=== PATIENT | female | born 1940 | race Caucasian/White ===

== ENCOUNTER 2016-05-14 02:02 | Inpatient (IN) | payer MEDICARE, BC, OTHER ==
--- NOTE | ~2016-05-14 | CN ---
Consultation Report [facility] [address] [place]. [address] NAME: SCOTT BARCLAY : 39 STATUS : ADM Stefanie PAT#: [id number] AGE: 75 ADM/REG DATE : 05/14/16 MR#: [id number] REPORT SERV DATE: 05/14/16 DICTATED BY: BAKARI WELCH JR. DATE: 05/14/16 REPORT STATUS : Draft TRANSCRIBED BY: MODL DATE: 05/14/16 OPHTHALMOLOGY CONSULTATION DATE OF CONSULTATION: 05/14/2016 HISTORY OF PRESENT ILLNESS: The patient is a 75-year-old white female with sudden onset of decreased vision left eye. The patient reports last night at 11:30 p.m., patient suddenly went out "in the left eye." Only a small area of peripheral central vision present. Right eye is normal. No trauma. No headache. No redness. No pain. PAST MEDICAL HISTORY: Positive for COPD, atrial fibrillation, history of lung cancer. PAST EYE HISTORY: Cataract surgery, both eyes, 10 years ago. FAMILY MEDICAL HISTORY: Negative. FAMILY OCULAR HISTORY: Negative. MEDICATIONS: See med sheet. ALLERGIES: PENICILLIN, SULFA, QUININE. SOCIAL HISTORY: Negative. REVIEW OF SYSTEMS: Negative. PHYSICAL EXAMINATION: GENERAL: Well-developed, well-nourished white female, in no acute distress. Alert, oriented x3. HEENT: Vision near with correction 20/50 in the right eye, 20/100 in the left eye. External examination is normal in both eyes. Motility is esotropic and full in both eyes. Pupils 4 mm to 3 mm, constricting bilaterally. Possible afferent pupillary defect, left eye. Confrontation visual camacho full to finger count on the right, constricted concentrically on the left. Anterior segment examination reveals lids and lashes to be clear in both eyes, conjunctivae and sclerae to be clear in both eyes, cornea to be clear in both eyes, anterior chamber to be deep in both eyes, iris flat in both eyes, lens posterior chamber intraocular lens in both eyes. Retina dilated with Mydriacyl 1% reveals this to be sharp in both eyes. Cup-to-disc 0.2 in both eyes. Vessels on the right are normal. Left, there appears to be a central retinal artery occlusion with a plaque lodged in the central retinal artery. Macula sanchez red spot on the left. Macula on the right is normal. Peripheral retinal exam normal in both eyes. ASSESSMENT AND PLAN: Central retinal artery occlusion, left eye. Recommend admit. Will Consultation Report [facility] [id number] [place]. [address] NAME: SCOTT BARCLAY : 39 STATUS : ADM Stefanie PAT#: [id number] AGE: 75 ADM/REG DATE : 05/14/16 MR#: [id number] REPORT SERV DATE: 05/14/16 DICTATED BY: BAKARI WELCH JR. DATE: 05/14/16 REPORT STATUS : Draft TRANSCRIBED BY: MODL DATE: 05/14/16 check sedimentation rate, C-reactive protein. Consult hospitalist. Recommend CBC with diff, carotid duplex, echocardiogram, PT/PTT. Will start timolol 0.5% one drop q.12 hours, left eye. Discussed low likelihood for visual recovery in the left eye and need for followup to evaluate for problems like neovascular glaucoma in the next 90 days. PB/MODL Bakari Welch M.D. / [id number] CC: Joce Waggoner Jr, MD Mario Mariani, M.D.
--- NOTE | ~2016-05-14 | DS ---
Discharge Summary [facility] [address] [place]. 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 SECONDARY DIAGNOSES: Left carotid stenosis, atrial fibrillation, history of pacemaker. HISTORY OF PRESENT ILLNESS: Please see Dr. Parra's dictation on 05/14/2016. HOSPITAL COURSE: Admitted with acute partial visual loss in the left eye. MRI was negative; however, a funduscopic exam did reveal consistent with a retinal artery occlusion, this was felt to be consistent with a retinal CVA. She did in fact have ipsilateral carotid stenosis 50% to 79% on MRA; however, CTA showed this only to be 50% and not in need of urgent carotid endarterectomy. She was being treated for atrial fibrillation with Xarelto, she was given aspirin. Other medicines were unchanged. She will follow up with Dr. Chun as an outpatient, Dr. Isaac Law in one to two weeks. She will get a followup appointment with Ophthalmology for glaucoma screening in their office. She will follow up with Dr. Bakari Savage of Ophthalmology following discharge. ALFIE/SANDRA Caro Sheikh M.D. / [id number] CC: Shay Bolanos M.D. Patrick Bowers, M.D. Sachin V Phade, M.D.
--- NOTE | ~2016-05-14 | HP ---
History And Physical [facility] [id number] [place]. [address] NAME: SCOTT BARCLAY : 39 STATUS : ADM Stefanie PAT#: [id number] AGE: 75 ADM/REG DATE : 05/14/16 MR#: [id number] REPORT SERV DATE: 05/14/16 DICTATED BY: GLO GAUTHIER DATE: 05/14/16 REPORT STATUS : Draft TRANSCRIBED BY: SANDRA DATE: 05/14/16 DATE OF ADMISSION: 05/14/2016 CHIEF COMPLAINT: This 75-year-old female, presenting with sudden left peripheral vision loss. HISTORY OF PRESENT ILLNESS: The patient's history was obtained through careful interview with the patient and daughter, coupled with review of [facility] medical records. The patient apparently was in usual state of health when at bedtime about 11 p.m. leading up to admission she had a "bam," left eye vision loss where she had just a "little spot" of retained vision in the middle of her visual camacho but total peripheral vision was completely lost and has still not been regained. Her right eye is unaffected. She stated that she felt slightly dizzy but no lightheadedness, no vertigo per. No confusion, no hemiparesis, no dysarthria no double vision. She denies any recent illness except for some slight nausea about two or three nights ago that then resolved within 24 hours. No fevers or chills. No shortness of breath. No headache. No back pain, no chest pain. No abdominal pain. No gait disturbance. REVIEW OF SYSTEMS: Otherwise, a 14-point review of systems was obtained and was negative. PAST MEDICAL HISTORY: 1. Atrial fibrillation, followed by Dr. Storey, on Xarelto. 2. AICD/pacer placement. 3. Hypertension. 4. Coronary artery disease, but no stent placement. 5. Lung cancer in 2011, status post radiation and "CyberKnife.". 6. Post-radiation pneumonitis with scar. 7. COPD. 8. Pneumonia. 9. Brain aneurysm in 1991 that "busted" right in the area she describes "between my eyes.". 10.Anemia. 11.Fibromyalgia. 12.Gastroesophageal reflux disorder. 13.Shingles with post-herpetic neuralgia. 14.Chronic pain management. 15.Depression. 16.Obstructive sleep apnea, on chronic BiPAP. 17.MRSA bacteremia. 18.Pseudomonas. History And Physical [address] [address] NAME: SCOTT BARCLAY : 39 STATUS : ADM Stefanie PAT#: [id number] AGE: 75 ADM/REG DATE : 05/14/16 MR#: [id number] REPORT SERV DATE: 05/14/16 DICTATED BY: GLO GAUTHIER DATE: 05/14/16 REPORT STATUS : Draft TRANSCRIBED BY: SANDRA DATE: 05/14/16 19.Pericardial effusion. 20.Irritable bowel syndrome seen by Dr. Chávez. 21.Pulmonary nodules. 22.C. difficile colitis January 2015. 23.Chronic pulmonary embolism seen by Dr. Selby. PAST SURGICAL HISTORY: 1. AICD/pacer placement. 2. Cholecystectomy. 3. Appendectomy. 4. Hysterectomy. 5. Skin cancer removal. 6. Right knee surgery. ALLERGIES: TO CEPHALOSPORINS, PENICILLIN, QUINOLONES, CODEINE, ERYTHROMYCIN, SULFA, QUININE, ALTACE, LYRICA, AND VERAPAMIL. SOCIAL HISTORY: Quit smoking more than 15 years ago. No alcohol abuse. She has been a for more than 25 years. Lives in [place], [place], alone, retired school resource officer. Supportive daughter at bedside. FAMILY HISTORY: Heart disease, stroke. Mother with pulmonary embolism. Aunt with lung cancer. Uncle with colon cancer. CURRENT MEDICATIONS: Include albuterol inhaler, Elavil 30 mg p.o. at bedtime, aspirin 81 mg p.o. daily, Lipitor 80 mg p.o. daily, nasal spray as needed, Bumex 2 mg in the morning, calcium with vitamin D, Coreg 3.125 mg p.o. b.i.d., digoxin 0.125 mg p.o. daily, Benadryl p.r.n., Nexium 40 mg p.o. b.i.d., iron supplement 3 times a day, Breo Ellipta inhaled every morning, Cozaar 25 mg p.o. daily, nitroglycerin, potassium 10 mEq p.o. t.i.d., Zantac 75 mg p.o. b.i.d., Xarelto 15 mg p.o. daily, Daliresp 500 mcg p.o. daily, Spiriva inhaled daily, and allergy medication. PHYSICAL EXAMINATION: VITAL SIGNS: Temperature 98.4, pulse 79, blood pressure 144/64, respiratory rate 20, O2 saturation 97% on room air. GENERAL: A pleasant, cooperative female, no evidence of acute distress. Vision check shows a left central vision of 20/200. Right central vision 20/40. NEUROLOGICAL: The patient has complete loss of peripheral vision in her left eye but central vision is intact. Otherwise, cranial nerves 2 through 12 are intact and symmetrical other than this one finding. The patient has 5/5 strength in upper and lower extremities that is symmetrical. HEENT: Pupils are equal, round, and reactive to light. No conjunctival pallor. No scleral icterus. Nares are patent. Oropharynx is clear of obstruction. Moist mucous membranes. NECK: Trachea midline, no thyromegaly. LYMPH: No cervical lymphadenopathy. No supraclavicular lymphadenopathy. RESPIRATORY: Clear to auscultation at bases. No wheezes, rales, or rhonchi. Normal respiratory effort. History And Physical [address] [address] NAME: SCOTT BARCLAY : 39 STATUS : ADM Stefanie PAT#: [id number] AGE: 75 ADM/REG DATE : 05/14/16 MR#: [id number] REPORT SERV DATE: 05/14/16 DICTATED BY: GLO GAUTHIER DATE: 05/14/16 REPORT STATUS : Draft TRANSCRIBED BY: SANDRA DATE: 05/14/16 CARDIOVASCULAR: Regular rate and rhythm, paced on the monitor. No murmurs, rubs, or gallops. No extremity edema is appreciated. ABDOMEN: Soft, nontender, nondistended. Normal bowel sounds auscultated throughout. No organomegaly. DERMATOLOGICAL: Warm and dry extremities. No pallor, no cyanosis. PSYCHIATRIC: Normal affect. Good mood. Alert and oriented x3. LABORATORY DATA: White blood count 6.8, hemoglobin 13, hematocrit 38, platelets 159. Sodium 141, potassium 4.1, chloride 101, bicarb 35, BUN 18, creatinine 0.93, glucose 99, and INR 2.0. STUDIES: 1. Chest x-ray by my own evaluation shows chronic right peripheral disease, stable compared to old x-ray. Stable cardiomegaly as well. 2. EKG shows ventricular pacing. 3. CT scan of the brain without contrast shows no acute intracranial process. ASSESSMENT AND PLAN: 1. Peripheral vision loss of the left eye. Negative CT scan of the brain. Unable to do MRI secondary to pacer/AICD. Continue aspirin, continue Xarelto. Obtain Neurology consult. Obtain an Ophthalmology consult with Dr. Savage. Check carotid ultrasound. Check echocardiogram. Check telemetry. Check fasting lipid panel. Consider a CT angiogram of the brain because of history of aneurysm back in 1991 ?.. 2. Atrial fibrillation, on Xarelto. 3. Pacemaker/AICD. 4. Obstructive sleep apnea, on nightly BiPAP. KPL/MODL Glo Gauthier M.D. / [id number] CC: Shay Pedersen M.D.
--- NOTE | ~2016-05-14 | CN ---
Consultation Report [facility] [address] [place]. [address] NAME: SCOTT BARCLAY : 39 STATUS : DIS IN PAT#: [id number] AGE: 75 ADM/REG DATE : 05/14/16 MR#: [id number] REPORT SERV DATE: 05/16/16 DICTATED BY: OLEG CHUN DATE: 05/15/16 REPORT STATUS : Draft TRANSCRIBED BY: SANDRA DATE: 05/15/16 DATE OF CONSULTATION: 05/15/2016 REASON FOR CONSULTATION: Evaluation for symptomatic carotid stenosis. BRIEF HISTORY: The patient is a 75-year-old female with a past medical history significant for atrial fibrillation, hypertension, coronary artery disease, lung cancer, pneumonia, intracranial aneurysm, fibromyalgia, anemia, chronic pain, and obstructive sleep apnea, who is on home oxygen as well as nightly BiPAP. She came in the hospital with sudden onset of left eye visual loss. She does not describe a lamp shade coming over her eye. Rather, she says that she lost her vision completely. She later said that she was able to retain a pinpoint spot in her central vision, which she could see. Occasionally, she feels like she can see everything normally if she looks through that one pinhole. She says that simply lasts for a second here or there and feels like she is pretty much lost her vision otherwise. She underwent an ophthalmology evaluation that suggested she has a central retinal occlusion. She ultimately underwent a carotid duplex that demonstrates elevated left internal carotid artery velocities. I was consulted for evaluation and treatment. The patient denies any other stroke-like symptoms. She has had no prodrome of symptoms. She denies any prior transient monocular blindness. PAST MEDICAL HISTORY: As above. PAST SURGICAL HISTORY: Includes AICD and pacemaker placement. She has had knee surgery, cholecystectomy, appendectomy, hysterectomy, and skin cancer removal. ALLERGIES: NUMEROUS AND THEY ARE DOCUMENTED ON THE CHART AND REVIEWED. MEDICATIONS: Documented on the chart and were reviewed. SOCIAL HISTORY: She quit smoking about 20 years ago. She denies any alcohol or drug use. She has been for a couple of decades. She lives alone in [place]. FAMILY HISTORY: Significant for heart disease and stroke. Cancers also run in her family. REVIEW OF SYSTEMS: A complete review of systems was performed and is negative with the exception of the aforementioned findings. PHYSICAL EXAMINATION: VITAL SIGNS: Documented on the chart and were reviewed. GENERAL: The patient is awake, alert, and oriented. No apparent distress. HEAD AND NECK: Benign without any carotid bruits. HEART: Regular rate and rhythm. LUNGS: Clear. ABDOMEN: Soft, nontender, nondistended with a nonaneurysmal aorta. Consultation Report [facility] [address] [place]. [address] NAME: SCOTT BARCLAY : 39 STATUS : DIS IN PAT#: [id number] AGE: 75 ADM/REG DATE : 05/14/16 MR#: [id number] REPORT SERV DATE: 05/16/16 DICTATED BY: OLEG CHUN DATE: 05/15/16 REPORT STATUS : Draft TRANSCRIBED BY: SANDRA DATE: 05/15/16 EXTREMITIES: She has a normal complement of upper extremity pulses without any significant edema or ischemic ulcerations. She has palpable femoral and popliteal pulses. I do not appreciate pedal pulses. She has no significant edema or ischemic ulcerations. NEUROLOGIC: Nonfocal, although she does have left eye visual loss. MUSCULOSKELETAL: Otherwise benign. LABORATORY DATA: Her investigations are fairly unremarkable. Her carotid duplex shows peak systolic velocities of just over 150 on the left side. They are normal on the right side. ASSESSMENT AND PLAN: It looks like this lady has had a central retinal artery occlusion on the left side. The etiology of this is unclear. The report of her carotid duplex suggests that she has a grade 2 disease. This may be overestimated. I would like to get a CT angiogram to better delineate her anatomy. We can decide what to do based on that. She is already on a statin. She is on anticoagulation for her atrial fibrillation. An echocardiogram was ordered, as it is very likely that she had a cardiac source of embolus or some intracranial issue. I doubt that she will need an intervention, but we can make this final decision when we have further objective data of what is going on with her carotid arteries. The patient expressed understanding of all this. PARTS PICKER/MODJennifer Oleg Chun M.D. / [id number] CC: Shay Bolanos M.D.
[2016-05-14 01:46] LABS: BASOPHILS 0.4 %; BASOPHILS ABSOLUTE 0.03 10/3/uL (0.0-0.16); EOSINOPHILS 2.5 %; EOSINOPHILS ABSOLUTE 0.17 10/3/uL (0.0-0.53); ER CBC TAT 0 Hrs 08 Mins; HEMATOCRIT 37.7 % (36.0-48.0); HEMOGLOBIN 12.9 g/dL (12.0-16.0); IMMATURE GRANULOCYTES 0.4 %; IMMATURE GRANULOCYTES ABSOLUTE 0.03 10/3/uL (0.0-0.11); LYMPHOCYTES ABSOLUTE 1.96 10/3/uL (0.67-4.30); MEAN CORPUS HGB CONC 34.2 g/dL (32.0-36.0); MEAN CORPUSCULAR HEMOGLOB 30.7 pg (26.0-34.0); MEAN CORPUSCULAR VOLUME 89.8 fL (80-100); MEAN PLATELET VOLUME 8.6 fL (9.2-13.0); MONOCYTES 8.6 %; MONOCYTES ABSOLUTE 0.58 10/3/uL (0.21-1.20); NEUTROPHILS 59.1 %; PLATELET COUNT 159 10/3/uL (150-400); RBC DISTRIBUTION WIDTH 13.6 % (12.0-16.0); WHITE BLOOD CELLS 6.8 10/3/uL (4.5-10.5)
[2016-05-14 01:47] LABS: MANUAL DIFF NO %
[2016-05-14 01:53] LABS: PARTIAL THROMBO TIME 41.4 SEC (22.5-37.2)
[2016-05-14 01:59] LABS: CALCIUM, SERUM 8.8 MG/DL (8.5-10.4); CHLORIDE, SERUM 101 MMOL/L (96-112); CO2 (CARBON DIOXIDE) 35 MMOL/L (24-34); CREATININE 0.93 MG/DL (0.55-1.02); GFR AFRICAN AMERICAN 69 ML/MIN (>=60); GFR NON AFRICAN AMERICAN 60 ML/MIN (>=60); GLUCOSE, SERUM 99 MG/DL (60-99); POTASSIUM, SERUM 4.1 MMOL/L (3.5-5.3); SODIUM, SERUM 141 MMOL/L (135-148)
[2016-05-14 02:00] LABS: BUN (BLOOD UREA NITROGEN) 18 MG/DL (6-23)
[~2016-05-14 02:02] MED LIST: ACCUNE1 INH; ACETSUP650 PR; ADVAIR INH; ADVAIR115P INH; ADVAIR250 INH; ALBUTEROL; ALLEGRA180 PO; AMB5 PO; AMIT10 PO; AMITRIPTYLINE; ANTI-FUNGAL2 % EX; ASAB PO; ATROVEN; ATV1 PO; BREO ELLIPTA INH; BROVANA15 MCG INH; BUM1 PO; BUM2 PO; C5 PO; CALCIUM; CALTRA600D PO; CALTRAT600 PO; CARD120 PO; CARDCD120 PO; CEFZIL500 MG PO; CO Q-10100 MG PO; COQ10100 MG OR; COREG3 PO; COUMADIN3 MG PO; COUMADIN4 MG PO; COZ25 PO; CYANO1000T PO; DALIRESP500 MCG; DALIRESP500 MCG PO; DELTADOSE; DIGITEK0.125 MG PO; DOLOPHINE10 MG PO; FERROUS SULF325 M1 PO; FERROUS SULFATE PO; GLUCAGON IM; HALF81 PO; IRON325 MG PO; JANTOVEN1 MG PO; JANTOVEN2.5 MG PO; JANTOVEN3 MG PO; JANTOVEN4 MG; JANTOVEN4 MG PO; JANTOVEN5 MG PO; K-TABS10 MEQ PO; KCL40UDL PO; KDUR20 PO; KLONOPIN WAF0.125 MG PO; KLOR-CON 1010 MEQ; KLOR-CON 1010 MEQ PO; KLOR-CON M1010 MEQ PO; L20 PO; L40; L40 PO; LAN125 PO; LAN25 PO; LIPITOR80 MG PO; LORTAB 5 PO; LYRICA50 PO; LYRICA75 PO; MAGOX4 PO; NATURA2 OPH; NEUR300 PO; NEXIUM40 PO; NITROSTAT0.4 MG SL; NORCO1 TA1 PO; NORV10 PO; NOVOLOG SC; NYS500UDL PO; OCEAN NAS; OS500 PO; OS500+D PO; P20 PO; P5 PO; PERCOCET1 TA4 PO; PRAVAC PO; PRILO PO; PRILOSEC OTC20 MG PO; PRILOSEC10 MG PO; PRILOSEC40 MG PO; PRIN2.5 PO; PROBIOTIC PO; PROTONIX PO; PROTONIX20 MG PO; PROVENTINH INH; PROVENTSOL INH; SPIRIVA INH; STERAPRED DS10 MG; SYMBICORT 160/41 INH INH; T PO; T3 PO; TEARS NATURA OPH; THERA M PLUS PO; ULTRAM50 PO; V80 PO; VALTREX5 PO; VANCOCIN HCL125 MG; VENTOLIN HFA INH; VIB100 PO; VITAMIN D1000 UNI1 PO; VITAMIN D31000 UNIT PO; XARELTO15 MG; XARELTO15 MG PO; ZANTAC 150 PO; ZITH250 PO; [UNRECOGNIZED DRUG - CODE] PO; [UNRECOGNIZED DRUG - OTHER]; [UNRECOGNIZED DRUG - OTHER] OR
[2016-05-14 02:04] LABS: PROTIME (NOT ORD) 22.3 SEC (12.0-14.5)
[2016-05-14] MEDS ORDERED: BREO ELLIPTA INH (02:48)
[2016-05-14] MEDS ORDERED: ZANTAC 75 PO (02:48)
[2016-05-14] MEDS ORDERED: SPIRIVA INH (02:48)
[2016-05-14] MEDS ORDERED: COZ25 PO (02:49)
[2016-05-14] MEDS ORDERED: DALIRESP500 MCG PO (02:49)
[2016-05-14] MEDS ORDERED: NITROSTAT0.4 MG SL (02:49)
[2016-05-14] MEDS ORDERED: COREG3 PO (02:49)
[2016-05-14] MEDS ORDERED: LAN125 PO (02:49)
[2016-05-14] MEDS ORDERED: AMIT10 PO (02:50)
[2016-05-14] MEDS ORDERED: LIPITOR80 MG PO (02:50)
[2016-05-14] MEDS ORDERED: KDUR10 PO (02:51)
[2016-05-14] MEDS ORDERED: XARELTO15 MG PO (02:51)
[2016-05-14] MEDS ORDERED: BUM2 PO (02:52)
[2016-05-14] MEDS ORDERED: VENTOLIN HFA INH (02:52)
[2016-05-14] MEDS ORDERED: DERMA-SMOOTH TOP (02:53)
[2016-05-14] MEDS ORDERED: ASTELIN NAS (02:53)
[2016-05-14] MEDS ORDERED: ULTRAM50 PO (02:54)
[2016-05-14] MEDS ORDERED: FERROUS SULF325 M1 PO (02:55)
[2016-05-14] MEDS ORDERED: CALTRA600D PO (02:55)
[2016-05-14] MEDS ORDERED: NEXIUM40 PO (02:55)
[2016-05-14] MEDS ORDERED: ASAB PO (02:56)
[2016-05-14] MEDS ORDERED: BEN25 PO (02:56)
[2016-05-14] MEDS ORDERED: AT25 PO (02:59)
[2016-05-14 09:03] LABS: C-REACTIVE PROTEIN < 2.9 MG/L (<8.0)
[2016-05-14 12:07] LABS: INTERNATIONAL NORMAL RATI 1.3 UNITS (-)
[2016-05-14 12:08] LABS: PARTIAL THROMBO TIME 34.2 SEC (22.5-37.2); PROTIME (NOT ORD) 15.8 SEC (12.0-14.5)
[2016-05-14 12:09] LABS: ER CBC TAT 0 Hrs 13 Mins; HEMATOCRIT 38.4 % (36.0-48.0); HEMOGLOBIN 12.3 g/dL (12.0-16.0); MEAN CORPUSCULAR HEMOGLOB 29.1 pg (26.0-34.0); MEAN PLATELET VOLUME 8.9 fL (9.2-13.0); PLATELET COUNT 161 10/3/uL (150-400); RBC DISTRIBUTION WIDTH 14.2 % (12.0-16.0); RED CELL COUNT 4.22 10/6/uL (4.0-5.6); WHITE BLOOD CELLS 6.6 10/3/uL (4.5-10.5)
[2016-05-14 12:10] LABS: MANUAL DIFF YES %
[2016-05-14 12:27] LABS: A/G RATIO 1.2 (0.7-1.9); ALBUMIN 3.2 G/DL (3.5-5.0); ALKALINE PHOSPHATASE 128 U/L (45-117); BUN (BLOOD UREA NITROGEN) 13 MG/DL (6-23); CALCIUM, SERUM 8.4 MG/DL (8.5-10.4); CHLORIDE, SERUM 104 MMOL/L (96-112); CHOL/HDL RATIO(NOT ORDER) 2.8 (0-5); CHOLESTEROL 126 MG/DL (< 200); CK-MB 1.4 NG/ML; CO2 (CARBON DIOXIDE) 30 MMOL/L (24-34); CPK 54 U/L (0-200); CREATININE 0.74 MG/DL (0.55-1.02); DIGOXIN 1.1 NG/ML (0.8-2.0); GFR AFRICAN AMERICAN 91 ML/MIN (>=60); GFR NON AFRICAN AMERICAN 79 ML/MIN (>=60); GLOBULIN 2.7 G/DL (2.5-4.1); GLUCOSE, SERUM 106 MG/DL (60-99); HDL CHOLESTEROL 45 MG/DL (> 49); LDL CHOLESTEROL 49 MG/DL (< 130); NON-HDL CHOLESTEROL 81 MG/DL (< 160); POTASSIUM, SERUM 3.9 MMOL/L (3.5-5.3); SGOT(AST) 13 U/L (5-40); SGPT(ALT) 15 U/L (5-65); SODIUM, SERUM 142 MMOL/L (135-148); TOTAL BILIRUBIN 0.8 MG/DL (0-1.2); TOTAL PROTEIN 5.9 G/DL (6.0-8.5); TRIGLYCERIDE 163 MG/DL (< 150); TROPONIN I 0.07 NG/ML (<0.05)
[2016-05-14 12:31] LABS: EOSINOPHILS 2 %; EOSINOPHILS ABSOLUTE (CALC) 0.13 10/3/uL (0.0-0.53); ER DIFF TAT 0 Hrs 35 Mins; LYMPHOCYTES 26 %; LYMPHOCYTES ABSOLUTE (CALC) 1.72 10/3/uL (0.67-4.30); MONOCYTES 7 %; MONOCYTES ABSOLUTE (CALC) 0.46 10/3/uL (0.21-1.20); NEUTROPHILS ABSOLUTE (CALC) 4.29 10/3/uL (2.02-8.40); PLATELET ESTIMATE ADQ (ADEQUATE); RBC MORPHOLOGY NORM (NORMAL); SEGMENTED NEUTROPHIL (0) 65 %; TOTAL NUCLEATED CELLS 100
[2016-05-14 21:51] LABS: ASCORBIC ACID (UR NOT ORDER) NEG (NEG); BILIRUBIN, URINE NEGATIVE (NEG); KETONE, URINE NEGATIVE (NEG); LEUKOCYTE ESTERASE(NOT OR NEG (NEG); WBC (NOT ORDERED) (RFLEX) 1 (0-5)
[2016-05-15 04:55] LABS: BASOPHILS 0.5 %; BASOPHILS ABSOLUTE 0.03 10/3/uL (0.0-0.16); EOSINOPHILS 3.3 %; EOSINOPHILS ABSOLUTE 0.18 10/3/uL (0.0-0.53); IMMATURE GRANULOCYTES 0.2 %; IMMATURE GRANULOCYTES ABSOLUTE 0.01 10/3/uL (0.0-0.11); LYMPHOCYTES 30.1 %; LYMPHOCYTES ABSOLUTE 1.66 10/3/uL (0.67-4.30); MEAN CORPUSCULAR HEMOGLOB 29.3 pg (26.0-34.0); MEAN CORPUSCULAR VOLUME 88.8 fL (80-100); MEAN PLATELET VOLUME 8.7 fL (9.2-13.0); MONOCYTES 7.8 %; MONOCYTES ABSOLUTE 0.43 10/3/uL (0.21-1.20); NEUTROPHILS 58.1 %; NEUTROPHILS ABSOLUTE 3.21 10/3/uL (2.02-8.40); PLATELET COUNT 148 10/3/uL (150-400); RBC DISTRIBUTION WIDTH 13.9 % (12.0-16.0); RED CELL COUNT 3.75 10/6/uL (4.0-5.6); WHITE BLOOD CELLS 5.5 10/3/uL (4.5-10.5)
[2016-05-15 05:03] LABS: HEMATOCRIT 33.3 % (36.0-48.0); MANUAL DIFF NO %
[2016-05-15 05:13] LABS: BUN (BLOOD UREA NITROGEN) 15 MG/DL (6-23); CALCIUM, SERUM 8.2 MG/DL (8.5-10.4); CHLORIDE, SERUM 105 MMOL/L (96-112); CO2 (CARBON DIOXIDE) 31 MMOL/L (24-34); CREATININE 0.71 MG/DL (0.55-1.02); GFR AFRICAN AMERICAN 96 ML/MIN (>=60); GFR NON AFRICAN AMERICAN 83 ML/MIN (>=60); GLUCOSE, SERUM 93 MG/DL (60-99); POTASSIUM, SERUM 3.3 MMOL/L (3.5-5.3); SODIUM, SERUM 144 MMOL/L (135-148)
[2016-05-16 06:30] LABS: BASOPHILS 0.5 %; BASOPHILS ABSOLUTE 0.03 10/3/uL (0.0-0.16); EOSINOPHILS 3.2 %; EOSINOPHILS ABSOLUTE 0.21 10/3/uL (0.0-0.53); HEMATOCRIT 33.9 % (36.0-48.0); HEMOGLOBIN 11.4 g/dL (12.0-16.0); IMMATURE GRANULOCYTES 0.2 %; IMMATURE GRANULOCYTES ABSOLUTE 0.01 10/3/uL (0.0-0.11); LYMPHOCYTES 28.9 %; MEAN CORPUS HGB CONC 33.6 g/dL (32.0-36.0); MEAN CORPUSCULAR HEMOGLOB 29.3 pg (26.0-34.0); MEAN CORPUSCULAR VOLUME 87.1 fL (80-100); MEAN PLATELET VOLUME 8.5 fL (9.2-13.0); MONOCYTES 7.1 %; MONOCYTES ABSOLUTE 0.47 10/3/uL (0.21-1.20); NEUTROPHILS 60.1 %; NEUTROPHILS ABSOLUTE 3.96 10/3/uL (2.02-8.40); PLATELET COUNT 148 10/3/uL (150-400); RED CELL COUNT 3.89 10/6/uL (4.0-5.6); WHITE BLOOD CELLS 6.6 10/3/uL (4.5-10.5)
[2016-05-16 06:34] LABS: MANUAL DIFF NO %
[2016-05-16 06:46] LABS: BUN (BLOOD UREA NITROGEN) 18 MG/DL (6-23); CALCIUM, SERUM 8.6 MG/DL (8.5-10.4); CHLORIDE, SERUM 102 MMOL/L (96-112); CO2 (CARBON DIOXIDE) 32 MMOL/L (24-34); CREATININE 0.82 MG/DL (0.55-1.02); FERRITIN 308 NG/ML (8-252); GFR AFRICAN AMERICAN 81 ML/MIN (>=60); GFR NON AFRICAN AMERICAN 70 ML/MIN (>=60); GLUCOSE, SERUM 96 MG/DL (60-99); SODIUM, SERUM 140 MMOL/L (135-148)
[2016-05-16 06:49] LABS: POTASSIUM, SERUM 3.6 MMOL/L (3.5-5.3)
[2016-05-16] MEDS ORDERED: KENCR.1 TOP (13:57)
[2016-05-16] MEDS ORDERED: CLARIT10 PO (13:59)
== END 2016-05-16 16:51 | disposition home or self-care (01) | DRG 123 ==
LOC: ER 02:02 → ER/OF 03:47 → 7NO 09:21
PROVIDERS: Hospitalist; Internal Medicine; Nurse Practitioner Acute Care
DX: H34.12 Central retinal artery occlusion, left eye (principal); I48.91 Unspecified atrial fibrillation; J44.9 Chronic obstructive pulmonary disease, unspecified; I65.22 Occlusion and stenosis of left carotid artery; Z95.0 Presence of cardiac pacemaker; G47.33 Obstructive sleep apnea (adult) (pediatric); Z79.01 Long term (current) use of anticoagulants; Z90.49 Acquired absence of other specified parts of digestive tract; Z90.710 Acquired absence of both cervix and uterus; Z87.891 Personal history of nicotine dependence; Z85.118 Personal history of other malignant neoplasm of bronchus and lung; Z88.0 Allergy status to penicillin; Z88.2 Allergy status to sulfonamides; I10 Essential (primary) hypertension; I25.10 Atherosclerotic heart disease of native coronary artery without angina pectoris; K21.9 Gastro-esophageal reflux disease without esophagitis
CPT/HCPCS: 70450; 70496; 70498; 71010; 80048; 80053; 80061; 80162; 81001; 82550; 82553; 82728; 83735; 83880; 84132; 84443; 84484; 85025; 85610; 85652; 85730; 86140; 93005; 93306; 93880; 94640; 96374; 99285; A9270-GY; C9113; Q9967